=== PATIENT | female | born 1955 | race Caucasian/White ===

== ENCOUNTER 2022-03-22 08:42 | Emergency (ER) | payer OTHER, SELFPAY ==
--- NOTE | ~2022-03-22 | XR_ITS ---
XR ankle RT min 3V 03/22/2022 09:15 INDICATION: Right ankle pain after trauma PROCEDURE: 4 views right ankle COMPARISON: No prior studies for comparison. FINDINGS: Fracture, dislocation or subluxation is not identified. Ankle mortise intact. Talar dome is within normal limits. There is an old avulsion fracture proximal aspect of the fifth metatarsal. The soft tissues appear within normal limits. No foreign bodies are identified. IMPRESSION: 1: NO ACUTE BONE OR JOINT ABNORMALITY IDENTIFIED. Reviewed, dictated and finalized at location A. [facility]
--- NOTE | 2022-03-22 08:49 | ED.LOWEXIN ---
HPI - Extremity Injury (Lower) General Chief Complaint: Extremity Injury, Lower Stated Complaint: right ankle injury Time Seen by Provider: 03/22/22 08:49 Source: patient and RN notes reviewed History of Present Illness HPI Narrative: patient is a 66-year-old female who presents to urgent care with complaints of right ankle pain. Patient states that 3 weeks ago she was caring a desk with a friend and it slipped and fell on the inside of her right ankle. Patient states that for the last week and a half she has been having increased pain after weight-bearing. Patient states in the morning and after rest it seems to be better. States that she has been using ibuprofen intermittently for pain. No other acute complaints. No acute distress noted. Patient aware of the plan of care. Some parts of this dictation were generated by voice recognition software and may contain typographical and/or grammatical inaccuracies. Related Data Home Medications Medication Instructions Recorded Confirmed aspirin 81 mg chewable tablet 03/22/22 atorvastatin 10 mg tablet mg 03/22/22 buspirone 5 mg tablet mg 03/22/22 famotidine 20 mg tablet mg 03/22/22 linagliptin 5 mg tablet (Tradjenta) mg 03/22/22 lisinopril 20 mg tablet mg 03/22/22 metformin 1,000 mg tablet mg 03/22/22 sertraline 50 mg tablet mg 03/22/22 Allergies Allergy/AdvReac Type Severity Reaction Status Date / Time No Known Allergies Allergy Verified 03/22/22 09:08 Review of Systems Review of Systems: CONSTITUTIONAL: Denies fever, chills, or sweats. EYES: Denies visual changes, redness, or discharge. ENT: Denies rhinorrhea, congestion, sore throat, or otalgia. CARDIOVASCULAR: Denies chest pain, palpitations, or edema. RESPIRATORY: Denies cough or dyspnea. GASTROINTESTINAL: Denies abdominal pain, nausea, vomiting, or diarrhea. GENITOURINARY: Denies dysuria or hematuria. SKIN: Denies rash or itching. MUSCULOSKELETAL: Reports swelling, pain and bruising to the right ankle NEUROLOGIC: Denies headache, numbness, or weakness. All other systems reviewed are negative, except as documented in HPI. PMFSH Comments At the time of my signature, I reviewed and agree with the nursing past medical, surgical, social, and family history. There is no relevant family history pertinent to the patient complaint. Exam Narrative: GENERAL: This is a well-nourished, well-developed patient, in no apparent distress. HEAD: normocephalic, atraumatic. EYES: PERRL. Sclera clear/white. Vision is grossly intact. EARS: External ears normal NOSE: External nose normal with no obvious nasal discharge, nares without redness, no rhinorrhea. THROAT: Mucous membranes moist NECK: Neck supple SKIN: warm, intact with no suspicious lesions or rash, good texture and turgor. NEURO: awake, alert, and oriented to person, place and time. There were no obvious focal neurologic abnormalities. EXTREMITIES: positive strong right pedal pulse with capillary refill less than 2 seconds. Range of motion to right lower extremity/ ankle within normal limits with exacerbated pain on weight-bearing. Very mild edema and tenderness to the medial right malleolus. Course Course Level of Care: Express Care Visit Vital Signs Vital signs: Vital Signs Temperature 98.0 F 03/22/22 09:00 Pulse Rate 79 03/22/22 09:00 Respiratory Rate 18 03/22/22 09:00 Blood Pressure 151/82 H 03/22/22 09:00 Pulse Oximetry 98 03/22/22 09:00 Oxygen Delivery Room Air 03/22/22 09:00 Temperature 98.0 F 03/22/22 09:08 Pulse Rate 79 03/22/22 09:08 Respiratory Rate 18 03/22/22 09:08 Blood Pressure 151/82 H 03/22/22 09:08 Pulse Oximetry 98 03/22/22 09:08 Oxygen Delivery Room Air 03/22/22 09:08 Reviewed- Patient is informed that they may have pre-hypertension or hypertension based on a blood pressure reading in the department. I recommend the patient call the primary care provider listed on their discharge i
[2022-03-22 09:00] VITALS: BP 151/82; PULSE 79; RESP 18; TEMP 36.7; O2SAT 98
[2022-03-22 09:08] VITALS: BP 151/82; PULSE 79; RESP 18; TEMP 36.7; O2SAT 98
== END 2022-03-22 09:38 | disposition home or self-care (01) ==
PROVIDERS: Emergency Provider Nurse Practitioner Family; PCP Family Medicine
DX: S90.01XA Contusion of right ankle, initial encounter (principal); W01.0XXA Fall on same level from slipping, tripping and stumbling without subsequent striking against object, initial encounter; I10 Essential (primary) hypertension; Z79.82 Long term (current) use of aspirin
CPT/HCPCS: 73610; 99213; G0463